=== PATIENT | male | born 1970 | race Two or more races ===

== ENCOUNTER → 2021-04-12 | Outpatient (CLI) | payer MEDICAID | END | disposition home or self-care (01) | LOC: XY 11:09 | PROVIDERS: ATTEND Podiatrist | DX: I77.9 Disorder of arteries and arterioles, unspecified (principal) | CPT/HCPCS: 93925 ==

== ENCOUNTER 2022-01-01 15:25 | Emergency (ER) | payer MEDICAID ==
[~2022-01-01] VITALS: Ht 170.2 cm; Wt 106.0 kg
[2022-01-01] MEDS ORDERED: AZITTAB PO (17:50)
[2022-01-01] MEDS ORDERED: ALBU108A14 IN (17:57)
[2022-01-01] MEDS ORDERED: PRED20TA2 PO (17:57)
[2022-01-01] MEDS ORDERED: methylPREDNISolone SOD SUCC 125 MG/2 ML VL IM ONE (18:00)
[2022-01-01] MEDS ORDERED: IPRATROPIUM BROM 0.5 MG/2.5ML INH SOL NEB ONE (18:00)
[2022-01-01] MEDS ORDERED: ALBUTEROL SULF 2.5 MG/0.5ML(0.5%) NEB SOLN NEB ONE (18:00)
[2022-01-01 19:02] LABS: Basophils # (auto) 0.1 10 ^3/uL (0-0.2); Basophils % (auto) 0.7 % (0.0-2.0); Eosinophils # (auto) 0.2 10 ^3/uL (0-0.8); Eosinophils % (auto) 1.9 % (0.0-7.0); Hematocrit 42.4 % (41.0-53.0); Hemoglobin 14.6 g/dL (13.5-17.5); Lymphocytes # (auto) 2.4 10 ^3/uL (0.4-5.4); Lymphocytes % (auto) 21.7 % (10.0-50.0); Mean Corpuscular Hemoglobin 29.4 pg (28.0-32.0); Mean Corpuscular Hgb Conc. 34.5 g/dL (32.0-36.0); Mean Corpuscular Volume 85.1 fL (80.0-100.0); Monocytes # (auto) 1.2 10 ^3/uL (0-1.3); Monocytes % (auto) 10.2 % (0.0-12.0); Neutrophils # (auto) 7.4 10 ^3/uL (1.6-8.6); Neutrophils % (auto) 65.5 % (37.0-80.0); Nucleated Red Blood Cells % 0.1 %; Red Blood Cells 4.98 10^6/uL (4.5-5.90); Red Cell Distribution Width 13.1 % (11.8-14.3); White Blood Cell 11.3 10^3/uL (4.4-10.8)
[2022-01-01 19:19] LABS: Albumin 3.5 g/dL (3.4-5.0); BUN/Creatinine Ratio 12.8; Potassium 4.2 mmol/L (3.5-5.1)
[2022-01-01 19:21] LABS: INR 0.97 (0.9-1.15); Partial Thromboplastin Time 30.8 sec (24.6-33.4)
[2022-01-01 19:22] LABS: Bilirubin, Total 0.6 mg/dL (0.2-1.0); Total Protein 9.2 g/dL (6.4-8.2)
[2022-01-01 21:00] VITALS: BP 133/85
== END 2022-01-01 21:09 | disposition home or self-care (01) ==
LOC: ER 15:25
DX: J20.9 Acute bronchitis, unspecified (principal); E11.9 Type 2 diabetes mellitus without complications
CPT/HCPCS: 36415; 71045; 80053; 83880; 84484; 85025; 85379; 85610; 85730; 93005; 94640; 96372; 99285; J2930; J7644

== ENCOUNTER → 2022-07-22 | Outpatient (CLI) | payer MEDICAID ==
[~2022-07-22] MED LIST: ALBU108A14 IN; AZITTAB PO; PRED20TA2 PO
== END | disposition home or self-care (01) ==
LOC: LAB 13:43
DX: Z01.812 Encounter for preprocedural laboratory examination (principal)
CPT/HCPCS: 36415; 82565; 84520